=== PATIENT | male | born 1980 | race Caucasian/White ===

== ENCOUNTER → 2021-02-16 | Outpatient (CLI) | payer SELFPAY ==
--- NOTE | 2021-02-16 10:37 | Diagnostic Imaging Report ---
INDICATION: LOW BACK PAIN WITH PAIN INTO RT LEG TECHNIQUE: AP, Lateral and Spot imaging of the lumbar spine CORRELATION STUDY: None FINDINGS: The lumbar spinal curvature is straightened. Alignment otherwise anatomic. Vertebral body heights and disc spaces are maintained. Minimal areas of endplate lipping. Spina bifida occulta defect at the S1 level. There is transitional anatomy with lumbarization at S1. No fracture or malalignment. IMPRESSION: Straightening of the normal lumbar lordosis could be owing to splinting and/or spasm. No radiographic evidence for acute bony abnormality of the lumbar spine. Dictated by: Dictated on workstation # [id number]
== END ==
LOC: RAD 09:43
PROVIDERS: ATTEND Chiropractor
DX: M40.56 Lordosis, unspecified, lumbar region (principal); M79.604 Pain in right leg
CPT/HCPCS: 72100